=== PATIENT | female | born 1945 | race Caucasian/White ===

== ENCOUNTER 2016-07-05 18:03 | Observation (INO) | payer OTHER, MEDICAID ==
[~2016-07-05] VITALS: Ht 167.6 cm; Wt 113.0 kg
[~2016-07-05 18:03] MED LIST: ACAR50TA PO; AMLO5TAB22 PO; ATOR20TA42 PO; GLIP5 PO; GLUCTAB PO; JANU100T PO; LISI10TA PO; LORT5TAB PO; LOSA100T PO; META800 PO; METF1000 PO; OMEP20TA PO
[2016-07-05 18:09] VITALS: BP 132/66; PULSE 78; RESP 16; TEMP 98; O2SAT 96
[2016-07-05] MEDS ORDERED: OMEP40CA2 PO (18:24)
[2016-07-05] MEDS ORDERED: METF500T PO (18:24)
[2016-07-05] MEDS ORDERED: SITA1TAB2 PO (18:24)
[2016-07-05] MEDS ORDERED: METO50TA11 PO (18:24)
[2016-07-05] MEDS ORDERED: GLIP5TAB8 PO (18:24)
[2016-07-05] MEDS ORDERED: ACAR50TA PO (18:24)
[2016-07-05] MEDS ORDERED: METF1000 PO (18:24)
[2016-07-05] MEDS ORDERED: LISI20TA3 PO (18:24)
[2016-07-05] MEDS ORDERED: ATOR20TA15 PO (18:24)
--- NOTE | 2016-07-05 18:37 | PD ---
HPI Chief Complaint: Respiratory Symptoms Time Seen by Provider: 18:20 Travel History International Travel<30 days: No Contact w/Intl Traveler<30days: No Traveled to known affect area: No History of Present Illness HPI The patient is a 71-year-old female who presents to the emergency department for bilateral rib pain and back pain that radiates to the head. The patient states his symptoms started 2 weeks ago with bilateral rib pain. The patient then states the pain radiating up to the scapula, to the neck, and up to the size of the head. The patient complains of mild headache, neck pain, bilateral upper back pain. The pain is worse with coughing and certain types of movement, she also notes limited range of motion of the upper extremities. The patient denies any anterior chest pain except with coughing. She denies any outright shortness of breath, nausea, vomiting, or abdominal pain. The patient does have a history of chronic diarrhea, possibly secondary to diabetic medications. The patient denies any known history of autoimmune disorders or myositis. The patient denies any fever, chills, or sweats. The patient did call her primary physician, Dr. Moss, but was unable to get an appointment to see her physician. PFSH Past Medical History High Cholesterol: Yes Diabetes: Yes Patient Takes Glucophage: Yes Diminished Hearing: No Hypertension: Yes Musculoskeletal: Yes (PT STATES SHE HAS "DISK PROBLEM 7-8 YEARS AGO" BUT NO TROUBLE SINCE THEN) Tetanus Vaccination: Unknown Influenza Vaccination: Yes ?: Not : 0 Past Surgical History Abdominal Surgery: Yes (COLONOSCOPY 1 WEEK AGO) Social History Alcohol Use: No Tobacco Use: No Substance Use: No Allergies-Medications (Allergen,Severity, Reaction): Coded Allergies: No Known Allergies (Verified , 07/05/16) Reported Meds & Prescriptions Reported Meds & Active Scripts Active Reported Metoprolol Succinate ER 24 HR (Metoprolol Succinate) 50 Mg Tab 50 Mg PO DAILY Januvia (Sitagliptin Phosphate) 100 Mg Tab 100 Mg PO DAILY Omeprazole 40 Mg Cap 40 Mg PO DAILY Atorvastatin (Atorvastatin Calcium) 20 Mg Tab 20 Mg PO HS Acarbose 50 Mg Tab 50 Mg PO TID Glipizide 5 Mg Tab 5 Mg PO BIDAC Take 30 minutes before a meal Lisinopril-Hctz 20-25 Mg Tab 1 Tab PO DAILY Metformin (Metformin HCl) 500 Mg Tab 500 Mg PO NOON With a meal Metformin (Metformin HCl) 1,000 Mg Tab 1,000 Mg PO BIDPC With meals Review of Systems Except as stated in HPI: all other systems reviewed are Neg General / Constitutional: No: Fever HENT: Positive: Headaches, Neck Pain Cardiovascular: Positive: Chest Pain or Discomfort (bilateral chest wall pain secondary to coughing, no pain when not coughing) Respiratory: Positive: Cough Gastrointestinal: No: Nausea, Vomiting, Abdominal Pain Musculoskeletal: Positive: Myalgias, Limited ROM, Pain Neurologic: No: Paresthesia, Sensory Disturbance Physical Exam Narrative GENERAL: Awake, alert, pleasant 71-year-old female who appears her stated age and is in no acute respiratory distress. SKIN: Warm and dry. No stigmata of shingles. HEAD: Atraumatic. Normocephalic. EYES: Pupils equal and round. No scleral icterus. No injection or drainage. ENT: No nasal bleeding or discharge. Mucous membranes pink and moist. NECK: Trachea midline. No JVD. Tenderness over the paravertebral muscles. No meningeal signs. CARDIOVASCULAR: Regular rate and rhythm. No murmur appreciated. RESPIRATORY: No accessory muscle use. Clear to auscultation. Breath sounds equal bilaterally. GASTROINTESTINAL: Abdomen soft, non-tender, nondistended. No rebound tenderness. Back: Tenderness of the paravertebral muscles from the midthoracic region up to the scapula. MUSCULOSKELETAL: Limited range of motion of the upper extremities with abduction , extension, and raising her arms above her head. Movement greater than 90 with abduction or extension greater than 90, or raising her arms above her head , increases pain. Positive distal pulses. NEUROLOGICAL: Awake and alert. No obvious cranial nerve deficits. Motor grossly within normal limits. Normal speech. PSYCHIATRIC: Appropriate mood and affect; insight and judgment normal. Data Data Last Documented VS Vital Signs Date Time Temp Pulse Resp B/P Pulse Ox O2 Delivery O2 Flow Rate FiO2 07/05/16 20:15 16 07/05/16 20:11 68 111/49 94 Room Air 07/05/16 18:09 98.0 Orders Complete Blood Count With Diff (07/05/16 18:31) Comprehensive Metabolic Panel (07/05/16 18:31) Westergren Sedimentation Rate (07/05/16 18:31) C-Reactive Protein (Crp) (07/05/16 18:31) Creatine Kinase (Cpk) (07/05/16 18:31) Troponin I (07/05/16 18:31) Chest, Single Ap (07/05/16 ) Electrocardiogram (07/05/16 ) Urinalysis - C+S If Indicated (07/05/16 18:31) Ketorolac Inj (Toradol Inj) (07/05/16 18:45) Morphine Inj (Morphine Inj) (07/05/16 18:45) Ondansetron Inj (Zofran Inj) (07/05/16 18:45) Sodium Chlor 0.9% 1000 Ml Inj (Ns 1000 M (07/05/16 18:45) Lipase (07/05/16 18:37) Lactic Acid (07/05/16 18:37) Urine Culture (07/05/16 19:00) Bedside Glucose MICHELLE.AC&HS (07/05/16 20:49) ^ Blood Glucose Goal (Criteria (07/05/16 20:49) ^ Hypoglycemia 51 - 69 Mg/Dl (07/05/16 20:49) ^ Hypoglycemia 50 Mg/Dl Or < (07/05/16 20:49) ^ Notify Dr: Other (07/05/16 20:49) Dextrose 50% In Betty (Vial) Inj (D50w (Vi (07/05/16 21:00) Glucagon Inj (Glucagon Inj) (07/05/16 21:00) Insulin Aspart Supplemtl Scale (Novolog (07/05/16 21:00) Ceftriaxone Inj (Rocephin Inj) (07/05/16 21:00) Lactic Acid (07/06/16 06:00) Place In Observation (07/05/16 ) Vital Signs (Adult) Q4H (07/05/16 20:49) Activity Oob With Assistance (07/05/16 20:49) ^ Real Estate Analyst / Telemetry .CONTINUOUS (07/05/16 20:49) Intake + Output MICHELLE.QSHIFT (07/05/16 20:49) Diet 1800 Ada Cons Carb (07/06/16 Breakfast) Sodium Chlor 0.9% 1000 Ml Inj (Ns 1000 M (07/05/16 20:49) Sodium Chloride 0.9% Flush (Ns Flush) (07/05/16 21:00) Sodium Chloride 0.9% Flush (Ns Flush) (07/05/16 21:00) Ondansetron Inj (Zofran Inj) (07/05/16 21:00) Bisacodyl Supp (Dulcolax Supp) (07/05/16 21:00) Comprehensive Metabolic Panel (07/06/16 06:00) Complete Blood Count With Diff (07/06/16 06:00) Scd Bilateral/Knee High MICHELLE.BID (07/05/16 20:49) Willy Bilateral/Knee High MICHELLE.QSHIFT (07/05/16 20:49) Acetaminophen (Tylenol) (07/05/16 21:00) Acetamin-Hydrocod 325-5 Mg ([place] 5-325 (07/05/16 21:00) Acetamin-Hydrocod 325-10 Mg ([place] 10-32 (07/05/16 21:00) Atorvastatin (Lipitor) (07/05/16 21:00) Glipizide (Glucotrol) (07/06/16 07:00) Metoprolol Succinate Er (Toprol Xl) (07/06/16 09:00) Admit Order (Ed Use Only) (07/05/16 ) ^ Saline Lock (07/05/16 20:54) Resp Oxygen David C Titrat 1-4 L (07/05/16 ) ^ Notify Dr: Other (07/05/16 20:54) Labs Laboratory Tests Test 07/05/16 07/05/16 19:00 19:15 Urine Collection Type CLEAN CATCH Urine Color YELLOW Urine Turbidity SLIGHT Urine pH 5.5 Urine Specific [place] 1.027 Urine Protein NEG mg/dL Urine Glucose (UA) NEG mg/dL Urine Ketones TRACE mg/dL Urine Occult Blood NEG Urine Nitrite NEG Urine Bilirubin NEG Urine Leukocyte Esterase SMALL Urine WBC 20-24 /hpf Urine Squamous Epithelial > 8 /hpf Cells Urine Amorphous Sediment MOD Urine Bacteria FEW /hpf Urine Mucus MOD /lpf Microscopic Urinalysis Comment CULTURE INDICATED White Blood Count 8.9 TH/MM3 Red Blood Count 3.99 MIL/MM3 Hemoglobin 10.7 GM/DL Hematocrit 32.6 % Mean Corpuscular Volume 81.7 FL Mean Corpuscular Hemoglobin 26.9 PG Mean Corpuscular Hemoglobin 32.9 % Concent Red Cell Distribution Width 14.5 % Platelet Count 275 TH/MM3 Mean Platelet Volume 8.3 FL Neutrophils (%) (Auto) 55.0 % Lymphocytes (%) (Auto) 35.3 % Monocytes (%) (Auto) 7.2 % Eosinophils (%) (Auto) 1.8 % Basophils (%) (Auto) 0.7 % Neutrophils # (Auto) 4.8 TH/MM3 Lymphocytes # (Auto) 3.2 TH/MM3 Monocytes # (Auto) 0.6 TH/MM3 Eosinophils # (Auto) 0.2 TH/MM3 Basophils # (Auto) 0.1 TH/MM3 CBC Comment DIFF FINAL Differential Comment Erythrocyte Sedimentation Rate 64 mm/hr Sodium Level 142 MEQ/L Potassium Level 4.3 MEQ/L Chloride Level 106 MEQ/L Carbon Dioxide Level 27.4 MEQ/L Anion Gap 9 MEQ/L Blood Urea Nitrogen 24 MG/DL Creatinine 1.40 MG/DL Estimat Glomerular Filtration 37 ML/MIN Rate Random Glucose 174 MG/DL Lactic Acid Level 3.1 mmol/L Calcium Level 8.1 MG/DL Total Bilirubin 0.2 MG/DL Aspartate Amino Transf 13 U/L (AST/SGOT) Alanine Aminotransferase 17 U/L (ALT/SGPT) Alkaline Phosphatase 119 U/L Total Creatine Kinase 56 U/L Troponin I LESS THAN 0.02 NG/ML C-Reactive Protein 0.77 MG/DL Total Protein 7.3 GM/DL Albumin 3.0 GM/DL Lipase 134 U/L MDM Medical Decision Making Medical Screen Exam Complete: Yes Emergency Medical Condition: Yes Medical Record Reviewed: Yes Interpretation(s) EKG reveals normal sinus rhythm with a rate of 79. Nonspecific ST-T wave changes. RSR prime in V1. Differential Diagnosis Differential diagnosis includes myositis, rhabdomyolysis, muscle strain, shingles, acute renal failure, myopathy, polymyalgia rheumatica, autoimmune disorder. Narrative Course IV was established, labs are drawn and sent, and the patient was placed on cardiac telemetry monitoring and continuous pulse oximetry monitoring. EKG was ordered and interpreted. CPK, sedimentation rate, and CRP were sent to lab. Lactic acid was sent to lab. Chest x-ray was obtained. The patient was administered Toradol, morphine, Zofran, and IV fluids. The patient was signed out to the oncoming physician at 7 PM laboratory evaluation and disposition pending. Diagnosis Primary Impression: Migratory polyarthritis Additional Impression: UTI (urinary tract infection) Qualified Code: N30.00 - Acute cystitis without hematuria Scripts Nitrofurantoin Monohydrate Macrocrystals (Macrobid)100 Mg [id number] Mg PO BID #14 CAP Ref 0 Prov:Kayy Scruggs MD 07/06/16 Condition: Stable Dov Rodrigez MD Jul 05, 2016 18:37
[2016-07-05] MEDS ORDERED: ONDANSETRON HCL 4 MG/2 ML VIAL IV PUSH ONE (18:45)
[2016-07-05] MEDS ORDERED: SODIUM CHLOR 0.9% 1000 ML INJ 1,000 ML IV SCH (18:45)
[2016-07-05] MEDS ORDERED: MORPHINE SULFATE 4 MG/ML INJ IV PUSH ONE (18:45)
[2016-07-05] MEDS ORDERED: KETOROLAC TROMETHAMINE 30 MG/ML (IVP) VIAL IV PUSH ONE (18:45)
--- NOTE | 2016-07-05 19:04 | RADHPO ---
EXAM DATE/TIME: 07/05/2016 18:47 [place] COMPARISON: No previous studies available for comparison. INDICATIONS : Chest pain, short of breath MEDICAL HISTORY : None. SURGICAL HISTORY : None. ENCOUNTER: Initial ACUITY: 2 weeks PAIN SCORE: 10/10 LOCATION: Bilateral chest FINDINGS: A single view of the chest demonstrates the lungs to be symmetrically aerated without evidence of mas s, infiltrate or effusion. The cardiomediastinal contours are unremarkable. Osseous structures are intact. CONCLUSION: No acute disease. Cl Griffin MD FACR on July 05, 2016 at 19:02 Board Certified Radiologist. This report was verified electronically.
[2016-07-05 19:11] VITALS: BP 135/57; PULSE 78; O2SAT 96
--- NOTE | 2016-07-05 19:14 | PD ---
Physical Exam Date Seen by Provider: Jul 05, 2016 Time Seen by Provider: 19:10 Narrative Accepted in transfer of care from Dr. Rodrigez GENERAL: Well-developed well-nourished female in no acute distress no respiratory distress SKIN: Warm and dry. CARDIOVASCULAR: Regular rate and rhythm without murmurs, gallops, or rubs. RESPIRATORY: Breath sounds equal bilaterally. No accessory muscle use. GASTROINTESTINAL: Abdomen soft, non-tender, nondistended. Data Data Last Documented VS Vital Signs Date Time Temp Pulse Resp B/P Pulse Ox O2 Delivery O2 Flow Rate FiO2 07/05/16 20:15 16 07/05/16 20:11 68 111/49 94 Room Air 07/05/16 18:09 98.0 Orders Complete Blood Count With Diff (07/05/16 18:31) Comprehensive Metabolic Panel (07/05/16 18:31) Westergren Sedimentation Rate (07/05/16 18:31) C-Reactive Protein (Crp) (07/05/16 18:31) Creatine Kinase (Cpk) (07/05/16 18:31) Troponin I (07/05/16 18:31) Chest, Single Ap (07/05/16 ) Electrocardiogram (07/05/16 ) Urinalysis - C+S If Indicated (07/05/16 18:31) Ketorolac Inj (Toradol Inj) (07/05/16 18:45) Morphine Inj (Morphine Inj) (07/05/16 18:45) Ondansetron Inj (Zofran Inj) (07/05/16 18:45) Sodium Chlor 0.9% 1000 Ml Inj (Ns 1000 M (07/05/16 18:45) Lipase (07/05/16 18:37) Lactic Acid (07/05/16 18:37) Urine Culture (07/05/16 19:00) Bedside Glucose MICHELLE.AC&HS (07/05/16 20:49) ^ Blood Glucose Goal (Criteria (07/05/16 20:49) ^ Hypoglycemia 51 - 69 Mg/Dl (07/05/16 20:49) ^ Hypoglycemia 50 Mg/Dl Or < (07/05/16 20:49) ^ Notify Dr: Other (07/05/16 20:49) Dextrose 50% In Betty (Vial) Inj (D50w (Vi (07/05/16 21:00) Glucagon Inj (Glucagon Inj) (07/05/16 21:00) Insulin Aspart Supplemtl Scale (Novolog (07/05/16 21:00) Ceftriaxone Inj (Rocephin Inj) (07/05/16 21:00) Lactic Acid (07/06/16 06:00) Place In Observation (07/05/16 ) Vital Signs (Adult) Q4H (07/05/16 20:49) Activity Oob With Assistance (07/05/16 20:49) ^ Zipper Setter Lockstitch / Telemetry .CONTINUOUS (07/05/16 20:49) Intake + Output MICHELLE.QSHIFT (07/05/16 20:49) Diet 1800 Ada Cons Carb (07/06/16 Breakfast) Sodium Chlor 0.9% 1000 Ml Inj (Ns 1000 M (07/05/16 20:49) Sodium Chloride 0.9% Flush (Ns Flush) (07/05/16 21:00) Sodium Chloride 0.9% Flush (Ns Flush) (07/05/16 21:00) Ondansetron Inj (Zofran Inj) (07/05/16 21:00) Bisacodyl Supp (Dulcolax Supp) (07/05/16 21:00) Comprehensive Metabolic Panel (07/06/16 06:00) Complete Blood Count With Diff (07/06/16 06:00) Scd Bilateral/Knee High MICHELLE.BID (07/05/16 20:49) Willy Bilateral/Knee High MICHELLE.QSHIFT (07/05/16 20:49) Acetaminophen (Tylenol) (07/05/16 21:00) Acetamin-Hydrocod 325-5 Mg ([place] 5-325 (07/05/16 21:00) Acetamin-Hydrocod 325-10 Mg ([place] 10-32 (07/05/16 21:00) Atorvastatin (Lipitor) (07/05/16 21:00) Glipizide (Glucotrol) (07/06/16 07:00) Metoprolol Succinate Er (Toprol Xl) (07/06/16 09:00) Admit Order (Ed Use Only) (07/05/16 ) ^ Saline Lock (07/05/16 20:54) Resp Oxygen David C Titrat 1-4 L (07/05/16 ) ^ Notify Dr: Other (07/05/16 20:54) Labs Laboratory Tests Test 07/05/16 07/05/16 19:00 19:15 Urine Collection Type CLEAN CATCH Urine Color YELLOW Urine Turbidity SLIGHT Urine pH 5.5 Urine Specific [place] 1.027 Urine Protein NEG mg/dL Urine Glucose (UA) NEG mg/dL Urine Ketones TRACE mg/dL Urine Occult Blood NEG Urine Nitrite NEG Urine Bilirubin NEG Urine Leukocyte Esterase SMALL Urine WBC 20-24 /hpf Urine Squamous Epithelial > 8 /hpf Cells Urine Amorphous Sediment MOD Urine Bacteria FEW /hpf Urine Mucus MOD /lpf Microscopic Urinalysis Comment CULTURE INDICATED White Blood Count 8.9 TH/MM3 Red Blood Count 3.99 MIL/MM3 Hemoglobin 10.7 GM/DL Hematocrit 32.6 % Mean Corpuscular Volume 81.7 FL Mean Corpuscular Hemoglobin 26.9 PG Mean Corpuscular Hemoglobin 32.9 % Concent Red Cell Distribution Width 14.5 % Platelet Count 275 TH/MM3 Mean Platelet Volume 8.3 FL Neutrophils (%) (Auto) 55.0 % Lymphocytes (%) (Auto) 35.3 % Monocytes (%) (Auto) 7.2 % Eosinophils (%) (Auto) 1.8 % Basophils (%) (Auto) 0.7 % Neutrophils # (Auto) 4.8 TH/MM3 Lymphocytes # (Auto) 3.2 TH/MM3 Monocytes # (Auto) 0.6 TH/MM3 Eosinophils # (Auto) 0.2 TH/MM3 Basophils # (Auto) 0.1 TH/MM3 CBC Comment DIFF FINAL Differential Comment Erythrocyte Sedimentation Rate 64 mm/hr Sodium Level 142 MEQ/L Potassium Level 4.3 MEQ/L Chloride Level 106 MEQ/L Carbon Dioxide Level 27.4 MEQ/L Anion Gap 9 MEQ/L Blood Urea Nitrogen 24 MG/DL Creatinine 1.40 MG/DL Estimat Glomerular Filtration 37 ML/MIN Rate Random Glucose 174 MG/DL Lactic Acid Level 3.1 mmol/L Calcium Level 8.1 MG/DL Total Bilirubin 0.2 MG/DL Aspartate Amino Transf 13 U/L (AST/SGOT) Alanine Aminotransferase 17 U/L (ALT/SGPT) Alkaline Phosphatase 119 U/L Total Creatine Kinase 56 U/L Troponin I LESS THAN 0.02 NG/ML C-Reactive Protein 0.77 MG/DL Total Protein 7.3 GM/DL Albumin 3.0 GM/DL Lipase 134 U/L [facility] Medical Record Reviewed: Yes Supervised Visit with ROBERTO: No Interpretation(s) Laboratory Tests Test 07/05/16 07/05/16 19:00 19:15 Urine Collection Type CLEAN CATCH Urine Color YELLOW Urine Turbidity SLIGHT Urine pH 5.5 Urine Specific [place] 1.027 Urine Protein NEG mg/dL Urine Glucose (UA) NEG mg/dL Urine Ketones TRACE mg/dL Urine Occult Blood NEG Urine Nitrite NEG Urine Bilirubin NEG Urine Leukocyte Esterase SMALL Urine WBC 20-24 /hpf Urine Squamous Epithelial > 8 /hpf Cells Urine Amorphous Sediment MOD Urine Bacteria FEW /hpf Urine Mucus MOD /lpf Microscopic Urinalysis Comment CULTURE INDICATED White Blood Count 8.9 TH/MM3 Red Blood Count 3.99 MIL/MM3 Hemoglobin 10.7 GM/DL Hematocrit 32.6 % Mean Corpuscular Volume 81.7 FL Mean Corpuscular Hemoglobin 26.9 PG Mean Corpuscular Hemoglobin 32.9 % Concent Red Cell Distribution Width 14.5 % Platelet Count 275 TH/MM3 Mean Platelet Volume 8.3 FL Neutrophils (%) (Auto) 55.0 % Lymphocytes (%) (Auto) 35.3 % Monocytes (%) (Auto) 7.2 % Eosinophils (%) (Auto) 1.8 % Basophils (%) (Auto) 0.7 % Neutrophils # (Auto) 4.8 TH/MM3 Lymphocytes # (Auto) 3.2 TH/MM3 Monocytes # (Auto) 0.6 TH/MM3 Eosinophils # (Auto) 0.2 TH/MM3 Basophils # (Auto) 0.1 TH/MM3 CBC Comment DIFF FINAL Differential Comment Erythrocyte Sedimentation Rate 64 mm/hr Sodium Level 142 MEQ/L Potassium Level 4.3 MEQ/L Chloride Level 106 MEQ/L Carbon Dioxide Level 27.4 MEQ/L Anion Gap 9 MEQ/L Blood Urea Nitrogen 24 MG/DL Creatinine 1.40 MG/DL Estimat Glomerular Filtration 37 ML/MIN Rate Random Glucose 174 MG/DL Lactic Acid Level 3.1 mmol/L Calcium Level 8.1 MG/DL Total Bilirubin 0.2 MG/DL Aspartate Amino Transf 13 U/L (AST/SGOT) Alanine Aminotransferase 17 U/L (ALT/SGPT) Alkaline Phosphatase 119 U/L Total Creatine Kinase 56 U/L Troponin I LESS THAN 0.02 NG/ML C-Reactive Protein 0.77 MG/DL Total Protein 7.3 GM/DL Albumin 3.0 GM/DL Lipase 134 U/L Differential Diagnosis Please refer to Dr. Rodrigez's dictation Narrative Course Accepted in transfer of care from Dr. Rodrigez for follow-up of pending diagnostics and patient disposition Patient with family at bedside aware of laboratory abnormalities and recommendation for observation admission for ongoing management of possible polymyalgia rheumatica, migratory polyarthritis UTI and elevated lactic acid level. Patient's case discussed with on-call medicine physician aware of elevated lactic acid and sedimentation rate as well as UTI and patient will be started on IV antibiotics may be a candidate for IV steroids Physician Communication Physician Communication case discussed with on-call [facility] MD Dr Lee --obs Diagnosis Primary Impression: Migratory polyarthritis Additional Impressions: UTI (urinary tract infection) Elevated lactic acid level Admitting Information Admitting Physician Requests: Observation Condition: Stable Rayna Vallejo MD Jul 05, 2016 19:13
[2016-07-05 19:27] LABS: AUTOMATED NEUTROPHIL # 4.8 TH/MM3 (1.8-7.7); BASOPHIL # 0.1 TH/MM3 (0-0.2); BASOPHIL % 0.7 % (0.0-2.0); EOSINOPHIL # 0.2 TH/MM3 (0-0.4); EOSINOPHIL % 1.8 % (0.0-4.0); HEMATOCRIT 32.6 % (35.0-46.0); HEMO FLAGS DIFF FINAL; LYMPH % 35.3 % (9.0-44.0); LYMPHOCYTE # 3.2 TH/MM3 (1.0-4.8); MEAN CELL VOLUME 81.7 FL (80.0-100.0); MEAN CORPUSCULAR HEMOGLOBIN 26.9 PG (27.0-34.0); MEAN CORPUSCULAR HGB CONC 32.9 % (32.0-36.0); MONO % 7.2 % (0.0-8.0); PLATELET COUNT 275 TH/MM3 (150-450); RED BLOOD COUNT 3.99 MIL/MM3 (4.00-5.30); RED CELL DISTRIBUTION WIDTH 14.5 % (11.6-17.2); WHITE BLOOD COUNT 8.9 TH/MM3 (4.0-11.0)
[2016-07-05 19:35] LABS: CHLORIDE 106 MEQ/L (98-107); POTASSIUM 4.3 MEQ/L (3.5-5.1); SODIUM (NA) 142 MEQ/L (136-145)
[2016-07-05 19:38] LABS: ANION GAP 9 MEQ/L (5-15); BICARBONATE 27.4 MEQ/L (21.0-32.0); BLOOD UREA NITROGEN 24 MG/DL (7-18)
[2016-07-05 19:41] LABS: ALT (GPT) 17 U/L (10-53); AST (GOT) 13 U/L (15-37)
[2016-07-05 19:42] LABS: GLOMERULAR FILTRATION RATE 37 ML/MIN (>89)
[2016-07-05 19:43] LABS: TOTAL BILIRUBIN ADULT 0.2 MG/DL (0.2-1.0)
[2016-07-05 19:44] LABS: ALKALINE PHOSPHATASE 119 U/L (45-117)
[2016-07-05 19:46] LABS: CREATINE KINASE 56 U/L (26-192)
[2016-07-05 19:48] LABS: BLOOD, URINE NEG (NEG); GLUCOSE,URINE NEG (NEG); KETONE, URINE TRACE mg/dL (NEG); NITRITE,URINE NEG (NEG); PH, URINE 5.5 (5.0-8.5)
[2016-07-05 20:11] VITALS: BP 111/49; PULSE 68; O2SAT 94
[2016-07-05 20:19] LABS: METHOD OF COLLECTION CLEAN CATCH; MUCUS URINE MOD /lpf (OCC); URINE COLOR YELLOW (YELLW/STRAW)
[2016-07-05 20:21] LABS: SQUAMOUS EPITHELIAL CELL URINE > 8 /hpf (0-5)
[2016-07-05 20:22] LABS: BACTERIA, URINE FEW /hpf; COMMENT (UR) CULTURE INDICATED; CULTURE IF INDICATED CULTURE INDICATED
[2016-07-05] MEDS ORDERED: SODIUM CHLORIDE 0.9% FLUSH 5 ML FLUSH IVF PRN (21:00)
[2016-07-05] MEDS ORDERED: ATORVASTATIN 20 MG TAB PO SCH (21:00)
[2016-07-05] MEDS ORDERED: DEXTROSE 50% IN WATER 50 ML VIAL(D50) IV PUSH PRN (21:00)
[2016-07-05] MEDS ORDERED: ACETAMINOPHEN/HYDROcodone 325 MG/5 MG TAB PO PRN (21:00)
[2016-07-05] MEDS ORDERED: BISACODYL 10 MG SUPP PR PRN (21:00)
[2016-07-05] MEDS ORDERED: GLUCAGON 1 MG/ML VIAL OTHER PRN (21:00)
[2016-07-05] MEDS ORDERED: ACETAMINOPHEN/HYDROcodone 325 MG/10 MG TAB PO PRN (21:00)
[2016-07-05] MEDS ORDERED: ACETAMINOPHEN 325 MG TAB PO PRN (21:00)
[2016-07-05] MEDS ORDERED: cefTRIAXone INJ 1,000 MG in SODIUM CHLORIDE 0.9% INJ 100 ML IV SCH (21:00)
[2016-07-05] MEDS ORDERED: ONDANSETRON HCL 4 MG/2 ML VIAL IVP PRN (21:00)
[2016-07-05] MEDS ORDERED: cefTRIAXone INJ 1,000 MG in SODIUM CHLORIDE 0.9% INJ 100 ML IV ONE (21:00)
[2016-07-05] MEDS ORDERED: SODIUM CHLORIDE 0.9% FLUSH 5 ML FLUSH IVF SCH (21:00)
[2016-07-05] MEDS ORDERED: SODIUM CHLORIDE 0.9% FLUSH 5 ML FLUSH FLUSH PRN (21:00)
[2016-07-05 21:11] VITALS: BP 120/48; PULSE 68; O2SAT 94
[2016-07-05] MEDS: INSULIN ASPART SUPPLEMENTAL SCALE SQ SCH (21:37)
[2016-07-05] MEDS: SODIUM CHLORIDE 0.9% FLUSH 5 ML FLUSH FLUSH SCH (21:37)
[2016-07-05] MEDS: SODIUM CHLOR 0.9% 1000 ML INJ 1,000 ML IV SCH (21:38)
[2016-07-05 21:49] VITALS: O2SAT 97
[2016-07-05 23:45] VITALS: BP 142/63; PULSE 73; RESP 16; TEMP 97.9; O2SAT 94
[2016-07-06] VITALS: BP 142/69; PULSE 60; RESP 18; TEMP 96.6; O2SAT 97
[2016-07-06 00:25] VITALS: BP 142/69; PULSE 60; RESP 18; TEMP 96.6; O2SAT 97
[2016-07-06 04:00] VITALS: BP 136/60; PULSE 61; RESP 18; TEMP 95.8; O2SAT 96
[2016-07-06] MEDS: INSULIN ASPART SUPPLEMENTAL SCALE SQ SCH (06:15)
[2016-07-06] MEDS: SODIUM CHLOR 0.9% 1000 ML INJ 1,000 ML IV SCH (06:21)
[2016-07-06] MEDS ORDERED: glipiZIDE 5 MG TAB PO SCH (07:00)
[2016-07-06 08:00] VITALS: BP 147/75; PULSE 65; PULSE 68; RESP 17; TEMP 97.4; O2SAT 97
[2016-07-06] MEDS: SODIUM CHLORIDE 0.9% FLUSH 5 ML FLUSH FLUSH SCH (08:02)
[2016-07-06 08:28] LABS: AUTOMATED NEUTROPHIL # 4.3 TH/MM3 (1.8-7.7); BASOPHIL # 0.1 TH/MM3 (0-0.2); BASOPHIL % 0.8 % (0.0-2.0); EOSINOPHIL # 0.2 TH/MM3 (0-0.4); EOSINOPHIL % 2.4 % (0.0-4.0); HEMATOCRIT 33.7 % (35.0-46.0); HEMO FLAGS DIFF FINAL; LYMPH % 33.6 % (9.0-44.0); LYMPHOCYTE # 2.5 TH/MM3 (1.0-4.8); MEAN CELL VOLUME 83.5 FL (80.0-100.0); MEAN CORPUSCULAR HEMOGLOBIN 26.6 PG (27.0-34.0); MEAN CORPUSCULAR HGB CONC 31.9 % (32.0-36.0); NEUT % 56.2 % (16.0-70.0); PLATELET COUNT 256 TH/MM3 (150-450); RED BLOOD COUNT 4.04 MIL/MM3 (4.00-5.30); RED CELL DISTRIBUTION WIDTH 15.4 % (11.6-17.2); WHITE BLOOD COUNT 7.6 TH/MM3 (4.0-11.0)
[2016-07-06 08:31] LABS: CHLORIDE 106 MEQ/L (98-107); POTASSIUM 4.1 MEQ/L (3.5-5.1); SODIUM (NA) 143 MEQ/L (136-145)
[2016-07-06 08:36] LABS: ANION GAP 8 MEQ/L (5-15); BICARBONATE 28.7 MEQ/L (21.0-32.0); BLOOD UREA NITROGEN 25 MG/DL (7-18)
[2016-07-06 08:39] LABS: ALT (GPT) 15 U/L (10-53); AST (GOT) 15 U/L (15-37); GLOMERULAR FILTRATION RATE 49 ML/MIN (>89)
[2016-07-06 08:40] LABS: TOTAL BILIRUBIN ADULT 0.2 MG/DL (0.2-1.0)
[2016-07-06 08:41] LABS: ALKALINE PHOSPHATASE 109 U/L (45-117)
[2016-07-06] MEDS ORDERED: METOPROLOL SUCCINATE 50 MG EXTENDED RELEASE TAB PO SCH (09:00)
[2016-07-06] MEDS ORDERED: MACR100C2 PO (10:28)
--- NOTE | 2016-07-06 10:29 | HHI.DCPOC ---
Discharge Care Plan Diagnosis: (1) Migratory polyarthritis (2) UTI (urinary tract infection) Goals to Promote Your Health * To prevent worsening of your condition and complications * To maintain your health at the optimal level Directions to Meet Your Goals Take your medications as prescribed Follow your dietary instruction Follow activity as directed Keep your appointments as scheduled Take your immunizations and boosters as scheduled If your symptoms worsen call your PCP, if no PCP go to Urgent Care Center or Emergency Room Smoking is Dangerous to Your Health. Avoid second hand smoke Call the 24-hour hour crisis hotline for domestic abuse at Kayy Scruggs MD Jul 06, 2016 10:29
--- NOTE | 2016-07-06 10:33 | HHI.HP ---
[facility] Primary Care Physician Moustapha Parker MD Admission Diagnosis Migratory arthropathy; uti; elevated lactate Diagnoses: Chief Complaint: Back pain Travel History International Travel<30 Days: No Contact w/Intl Traveler <30 Da: No Traveled to Known Affected Are: No History of Present Illness Patient is a 71-year-old female with some back pain for several days. She noted that she had a cough for the last 2 weeks and noted that the pain got worse when she coughed. She tried Advil and had finally come to the emergency room with severe pain. Overnight her discomfort is improved. She did have evidence of acute kidney injury with elevated lactic acid and was observed overnight in the hospital. Patient was found to have urinary tract infection was given Rocephin. This improved her symptoms and she did well. She was discharged home Review of Systems Constitutional: DENIES: Diaphoretic episodes, Fatigue, Fever, Weight gain, Weight loss, Chills, Dizziness, Change in appetite, Night Sweats Endocrine: DENIES: Abnorml menstrual pattern, Heat/cold intolerance, Polydipsia , Polyuria, Polyphagia Eyes: DENIES: Blurred vision, Diplopia, Eye inflammation, Eye pain, Vision loss , Photosensitivity, Double Vision Ears, nose, mouth, throat: DENIES: Tinnitus, Hearing loss, Vertigo, Nasal discharge, Oral lesions, Throat pain, Hoarseness, Ear Pain, Running Nose, Epistaxis, Sinus Pain, Toothache, Odynophagia Respiratory: DENIES: Apneas, Cough, Snoring, Wheezing, Hemoptysis, Sputum production, Shortness of breath Cardiovascular: DENIES: Chest pain, Palpitations, Syncope, Dyspnea on Exertion , PND, Lower Extremity Edema, Orthopnea, Claudication Gastrointestinal: DENIES: Abdominal pain, Black stools, Bloody stools, Constipation, Diarrhea, Nausea, Vomiting, Difficulty Swallowing, Anorexia Genitourinary: COMPLAINS OF: Urgency, DENIES: Abnormal vaginal bleeding, Dysmenorrhea, Dyspareunia, Sexual dysfunction, Urinary frequency, Urinary incontinence, Hematuria, Dysuria, Nocturia, Vaginal discharge Musculoskeletal: COMPLAINS OF: Joint pain, Muscle aches, Back pain, DENIES: Stiffness, Joint Swelling, Neck pain Integumentary: DENIES: Abnormal pigmentation, Pruritus, Rash, Nail changes, Breast masses, Breast skin changes, Nipple discharge Hematologic/lymphatic: DENIES: Bruising, Lymphadenopathy Immunologic/allergic: DENIES: Eczema, Urticaria Psychiatric: DENIES: Anxiety, Confusion, Mood changes, Depression, Hallucinations, Agitation, Suicidal Ideation, Homicidal Ideation, Delusions Past Family Social History Past Medical History Diabetes Hypertension Hyperlipidemia Past Surgical History Denies Reported Medications Reviewed in the medical record, no new medications but does take Advil frequently for arthralgias Allergies: Coded Allergies: No Known Allergies (Verified , 07/05/16) Active Ordered Medications Reviewed in the medical record Family History Family history of diabetes in her father Social History Lives with her family, no tobacco or alcohol dependency Physical Exam Vital Signs Vital Signs Date Time Temp Pulse Resp B/P Pulse Ox O2 Delivery O2 Flow Rate FiO2 07/06/16 08:00 97.4 65 17 147/75 97 07/06/16 08:00 68 07/06/16 04:00 95.8 61 18 136/60 96 07/06/16 00:25 96.6 60 18 142/69 97 07/05/16 23:45 97.9 73 16 142/63 94 Room Air 07/05/16 21:49 97 21 07/05/16 21:11 68 120/48 94 Room Air 07/05/16 20:15 16 07/05/16 20:15 16 07/05/16 20:11 68 111/49 94 Room Air 07/05/16 19:11 78 135/57 96 Room Air 07/05/16 19:01 20 Room Air 07/05/16 18:09 98.0 78 16 132/66 96 Physical Exam GENERAL: This is a well-nourished, well-developed patient, in no apparent distress. SKIN: No rashes, ecchymoses or lesions. Cool and dry. HEAD: Atraumatic. Normocephalic. No temporal or scalp tenderness. EYES: Pupils equal round and reactive. Extraocular motions intact. No scleral icterus. No injection or drainage. ENT: Nose without bleeding, purulent drainage or septal hematoma. Throat without erythema, tonsillar hypertrophy or exudate. Uvula midline. Airway patent. NECK: Trachea midline. No JVD or lymphadenopathy. Supple, nontender, no meningeal signs. CARDIOVASCULAR: Regular rate and rhythm without murmurs, gallops, or rubs. RESPIRATORY: Clear to auscultation. Breath sounds equal bilaterally. No wheezes , rales, or rhonchi. GASTROINTESTINAL: Abdomen soft, non-tender, nondistended. No hepato-splenomegaly , or palpable masses. No guarding. MUSCULOSKELETAL: Extremities without clubbing, cyanosis, or edema. No joint tenderness, effusion, or edema noted. No calf tenderness. Negative Homans sign bilaterally. NEUROLOGICAL: Awake and alert. Cranial nerves II through XII intact. Motor and sensory grossly within normal limits. Five out of 5 muscle strength in all muscle groups. Normal speech. Laboratory Laboratory Tests Test 07/05/16 07/05/16 07/06/16 19:00 19:15 08:15 Urine Collection Type CLEAN CATCH Urine Color YELLOW Urine Turbidity SLIGHT Urine pH 5.5 Urine Specific [place] 1.027 Urine Protein NEG Urine Glucose (UA) NEG Urine Ketones TRACE Urine Occult Blood NEG Urine Nitrite NEG Urine Bilirubin NEG Urine Leukocyte Esterase SMALL Urine WBC 20-24 Urine Squamous Epithelial > 8 Cells Urine Amorphous Sediment MOD Urine Bacteria FEW Urine Mucus MOD Microscopic Urinalysis Comment CULTURE INDICATED White Blood Count 8.9 7.6 Red Blood Count 3.99 4.04 Hemoglobin 10.7 10.7 Hematocrit 32.6 33.7 Mean Corpuscular Volume 81.7 83.5 Mean Corpuscular Hemoglobin 26.9 26.6 Mean Corpuscular Hemoglobin 32.9 31.9 Concent Red Cell Distribution Width 14.5 15.4 Platelet Count 275 256 Mean Platelet Volume 8.3 9.1 Neutrophils (%) (Auto) 55.0 56.2 Lymphocytes (%) (Auto) 35.3 33.6 Monocytes (%) (Auto) 7.2 7.0 Eosinophils (%) (Auto) 1.8 2.4 Basophils (%) (Auto) 0.7 0.8 Neutrophils # (Auto) 4.8 4.3 Lymphocytes # (Auto) 3.2 2.5 Monocytes # (Auto) 0.6 0.5 Eosinophils # (Auto) 0.2 0.2 Basophils # (Auto) 0.1 0.1 CBC Comment DIFF FINAL DIFF FINAL Differential Comment Erythrocyte Sedimentation Rate 64 Sodium Level 142 143 Potassium Level 4.3 4.1 Chloride Level 106 106 Carbon Dioxide Level 27.4 28.7 Anion Gap 9 8 Blood Urea Nitrogen 24 25 Creatinine 1.40 1.10 Estimat Glomerular Filtration 37 49 Rate Random Glucose 174 162 Lactic Acid Level 3.1 1.2 Calcium Level 8.1 8.5 Total Bilirubin 0.2 0.2 Aspartate Amino Transf 13 15 (AST/SGOT) Alanine Aminotransferase 17 15 (ALT/SGPT) Alkaline Phosphatase 119 109 Total Creatine Kinase 56 Troponin I LESS THAN 0.02 C-Reactive Protein 0.77 Total Protein 7.3 7.2 Albumin 3.0 3.0 Lipase 134 Date/Time Procedure Status Source Growth 07/05/16 19:00 Urine Culture Received Urine Clean Catch Pending Result Diagram: 07/06/16 0815 07/06/16 0815 Assessment and Plan Problem List: (1) UTI (urinary tract infection) ICD Code: N39.0 Status: Acute Plan: With evidence of acute kidney injury. Joint pain appears improved. Lactic acid improved. Overnight patient dramatically improved with IV hydration. No new events this morning. Discharge plans discussed with patient and she is agreeable. Assessment and Plan Discharge home Activity unrestricted Diet diabetic Follow-up with primary care physician 1 week Kayy Scruggs MD Jul 06, 2016 10:33
--- NOTE | 2016-07-06 19:34 | EKG ---
Date Performed: 07/05/2016 Time Performed: 18:32:32 PTAGE: 71 years EKG: Sinus rhythm Consider left atrial abnormality Left axis deviation RBBB with left anterior fascicular block Possib le anterior infarct - age undetermined Left ventricular hypertrophy Lateral ST-T changes are probably due to ventricular hypertrophy Low QRS voltages in precordial leads Abnormal ECG NO PREVIOUS TRACING DOCTOR: Ian Felder Interpretating Date/Time 07/06/2016 19:31:03
== END 2016-07-06 11:40 | disposition home or self-care (01) ==
LOC: PHED 18:03 → PHEDA 20:56 → PH3B 07-06 00:04
PROVIDERS: ADMIT Hospitalist; ATTEND Hospitalist
DX: N39.0 Urinary tract infection, site not specified (principal); I00 Rheumatic fever without heart involvement; M12.9 Arthropathy, unspecified; R74.0 Nonspecific elevation of levels of transaminase and lactic acid dehydrogenase [LDH]; I10 Essential (primary) hypertension; E78.5 Hyperlipidemia, unspecified; E78.00 Pure hypercholesterolemia, unspecified; N17.9 Acute kidney failure, unspecified; Z79.84 Long term (current) use of oral hypoglycemic drugs; E11.9 Type 2 diabetes mellitus without complications
CPT/HCPCS: 71010; 80053; 81001; 82550; 82948; 83605; 83690; 84484; 85025; 85652; 86140; 87086; 93005; 96361; 96374; 96375; 99285; G0378; J0696; J1885; J2270; J2405; J7030

== ENCOUNTER 2018-03-19 21:48 | Inpatient (IN) ==
[2018-03-19] MEDS ORDERED: Adenosine Inj 6 MG/2 ML Syringe IV.PUSH ONE ×2 (22:06→22:38)
[2018-03-19 23:36] LABS: Baso # (Auto) 0.1 th/mm3 (0.0-0.2); Baso % (Auto) 0.9 % (0.0-2.0); Eos # (Auto) 0.1 th/mm3 (0.0-0.4); Eos % (Auto) 1.5 % (0.0-4.0); Hematocrit 30.4 % (35.0-46.0); Hemoglobin 9.4 gm/dL (11.6-15.3); Lymph # (Auto) 2.6 th/mm3 (1.0-4.8); Lymph % (Auto) 27.9 % (9.0-44.0); Mean Corpuscular Hemoglobin 23.8 pg (27.0-34.0); Mean Corpuscular Volume 77.1 fL (80.0-100.0); Mean Platelet Volume 9.2 fL (7.0-11.0); Mono # (Auto) 0.7 th/mm3 (0.0-0.9); Mono % (Auto) 7.7 % (0.0-8.0); Neut # (Auto) 5.9 th/mm3 (1.8-7.7); Platelet Count 290 th/mm3 (150-450); Red Blood Count 3.94 mil/mm3 (4.00-5.30); Red Cell Distribution Width 15.9 % (11.6-17.2); White Blood Count 9.4 th/mm3 (4.0-11.0)
[2018-03-19 23:43] LABS: Mean Corpuscular HGB Conc 30.8 % (32.0-36.0)
--- NOTE | 2018-03-19 23:53 | XR ---
EXAM DATE: 03/19/2018 10:44 PM EDT AGE/SEX: 72 years / Female INDICATIONS: Chest pain. CLINICAL DATA: This is the patient's initial encounter. Patient reports that signs and symptoms have been present for 1 day and indicates a pain score of 8/10. MEDICAL/SURGICAL HISTORY: Diabetes mellitus type II. Hypertension. None. COMPARISON: No prior exams available for comparison. FINDINGS: The heart size is normal. The lungs are clear. No effusion is seen. There is a line seen over the right upper extremity. This structure appears in the medial upper arm, is directed into the upper chest and loops back on itself towards the lower right chest and then the right axillary region. If this represents a PICC line, this is likely not within a normal vascular structure. This should be correlated clinically. The patient could have a supporting line over this r egion. CONCLUSION: No acute cardiopulmonary process. Line over the right upper extremity and right chest not within a vascular structure. This can be rosalina elated if this corresponds to a supporting line versus a PICC line. If this is a PICC line, it is not likely within a normal vascular structure. Electronically signed by: Joon Valdez MD 03/19/2018 11:51 PM EDT
[2018-03-20] LABS: Chloride 103 meq/L (98-107); Potassium 4.2 meq/L (3.5-5.1); Sodium 138 meq/L (136-145)
[2018-03-20 00:03] LABS: Calcium 8.9 mg/dL (8.5-10.1)
[2018-03-20 00:04] LABS: Albumin 3.6 g/dL (3.4-5.0); Anion Gap 13 meq/L (5-15); Blood Urea Nitrogen 28 mg/dL (7-18); Carbon Dioxide 21.8 meq/L (21.0-32.0); Glucose,Random 335 mg/dL (74-106)
[2018-03-20 00:07] LABS: Alanine Aminotransferase 20 U/L (10-53); Aspartate Aminotransferase 14 U/L (15-37); Glomerular Filtration Rate 29 mL/min (>89)
[2018-03-20 00:09] LABS: Total Protein 8.1 g/dL (6.4-8.2)
[2018-03-20 00:10] LABS: Alkaline Phosphatase 139 U/L (45-117)
[2018-03-20 00:21] LABS: Ovalocytes 1+
--- NOTE | 2018-03-20 01:54 | ED ---
HPI General Chief Complaint: Arrhythmia / Palpitations Stated Complaint: CHEST PAIN/LEGS SHAKING/NECK PAIN Time Seen by Provider: 03/19/18 22:13 Source: patient Mode of arrival: ambulatory Limitations: no limitations History of Present Illness HPI narrative: Patient has history of recurrent supraventricular tachycardia. Patient had another episode today that persisted since approximately 10 AM. Patient has had substernal pressure that has been constant. No diaphoresis, however, intermittent shortness of breath. On presentation patient has heart rate of 160 of supraventricular tachycardia. Related Data Home Medications Medication Instructions Recorded Confirmed Vitamin B-12 1,000 mcg PO DAILY 03/19/18 03/19/18 acarbose 50 mg PO TID 03/19/18 03/19/18 atorvastatin 20 mg PO DAILY 03/19/18 03/19/18 glipizide 5 mg PO BID 03/19/18 03/19/18 lisinopril-hydrochlorothiazide 1 tab PO BID 03/19/18 03/19/18 metformin 1,000 mg PO BID 03/19/18 03/19/18 metoprolol succinate 50 mg PO DAILY 03/19/18 03/19/18 omeprazole 20 mg PO DAILY 03/19/18 03/19/18 sitagliptin [Januvia] 100 mg PO DAILY 03/19/18 03/19/18 Allergies Allergy/AdvReac Type Severity Reaction Status Date / Time No Known Allergies Allergy Verified 03/19/18 22:31 Review of Systems ROS: all other systems reviewed are negative [facility] Medical History Medical History History of high blood pressure (Acute) History of high cholesterol (Acute) Hx of diabetes mellitus (Acute) Hx of gastroesophageal reflux (GERD) (Acute) Surgical History Surgical History No history of previous surgery (Acute) Social History Social History Substance History: No History of Abuse Smoking Status: Never smoker How Often Do You Have a Drink Containing Alcohol: Never Recent Travel in [facility] within the Last 8 Weeks: No Recent Out of Country Travel within the Last 8 Weeks: No Immunization History Tetanus Immunization: Unsure Hx Influenza Vaccine This Season: Yes Exam Narrative Exam Narrative: GENERAL: Alert and oriented however persistent chest pain SKIN: Focused skin assessment warm/dry. HEAD: Atraumatic. Normocephalic. EYES: Pupils equal and round. No scleral icterus. No injection or drainage. ENT: No nasal bleeding or discharge. Mucous membranes pink and moist. NECK: Trachea midline. No JVD. CARDIOVASCULAR: Supraventricular tachycardia at rate of 160/min. No murmur appreciated. Pretibial edema 3 mm RESPIRATORY: No accessory muscle use. Clear to auscultation. Breath sounds equal bilaterally. GASTROINTESTINAL: Abdomen soft, non-tender, nondistended. Hepatic and splenic margins not palpable. MUSCULOSKELETAL: No obvious deformities. No clubbing. No cyanosis. No edema. NEUROLOGICAL: Awake and alert. No obvious cranial nerve deficits. Motor grossly within normal limits. Normal speech. PSYCHIATRIC: Appropriate mood and affect; insight and judgment normal. Course Reevaluation(s) Reevaluation #1: Patient failed to respond to Valsalva and sinus carotid massage. Responded to second dose of adenosine. However EKG afterwards showed ischemic changes in the lateral leads of EKG after conversion. Patient stable until now Time: 03:02 Initial Documented Vital Signs Temperature 98.2 F 03/19/18 21:54 Pulse Rate 165 H 03/19/18 21:54 Last Documented Vital Signs Temperature 97.9 F 03/19/18 22:42 Pulse Rate 78 03/20/18 01:21 Respiratory Rate 18 03/20/18 01:21 Blood Pressure 132/61 03/20/18 01:21 Pulse Oximetry 97 03/20/18 02:35 Critical Care Time Total Critical Care Time: 60 Attestation: None necessary Medical Decision Making [facility] Narrative Medical decision making narrative: Patient had supraventricular tachycardia that responded to admit seen and is stable at the present time however patient had lateral ischemic changes after conversion to normal sinus rhythm that varied from her previous EKG. Therefore patient requires admission to cardiology for follow-up and further evaluation Medical Screen Exam Complete: Yes Emergency Medical Condition: Yes Lab Data Result diagrams: 03/19/18 22:50 03/19/18 22:50 Lab Results 03/19/18 03/19/18 03/19/18 Range/Units 22:50 22:50 22:50 CBC w Diff Slide review pending WBC 9.4 (4.0-11.0) th/mm3 RBC 3.94 L (4.00-5.30) mil/mm3 Hgb 9.4 L (11.6-15.3) gm/dL Hct 30.4 L (35.0-46.0) % MCV 77.1 L (80.0-100.0) fL MCH 23.8 L (27.0-34.0) pg MCHC 30.8 L (32.0-36.0) % RDW 15.9 (11.6-17.2) % Plt Count 290 (150-450) th/mm3 MPV 9.2 (7.0-11.0) fL Neut % (Auto) 62.0 (16.0-70.0) % Lymph % (Auto) 27.9 (9.0-44.0) % [place] % (Auto) 7.7 (0.0-8.0) % Eos % (Auto) 1.5 (0.0-4.0) % Baso % (Auto) 0.9 (0.0-2.0) % Neut # (Auto) 5.9 (1.8-7.7) th/mm3 Lymph # (Auto) 2.6 (1.0-4.8) th/mm3 [place] # (Auto) 0.7 (0.0-0.9) th/mm3 Eos # (Auto) 0.1 (0.0-0.4) th/mm3 Baso # (Auto) 0.1 (0.0-0.2) th/mm3 WBC Differential . Diff Scan Auto diff confirmed Differential Comment . Ovalocytes 1+ H (None) Sodium 138 (136-145) meq/L Potassium 4.2 (3.5-5.1) meq/L Chloride 103 (98-107) meq/L Carbon Dioxide 21.8 (21.0-32.0) meq/L Anion Gap 13 (5-15) meq/L BUN 28 H (7-18) mg/dL Creatinine 1.70 H (0.50-1.00) mg/dL Estimated GFR 29 L (>89) mL/min Random Glucose 335 H (74-106) mg/dL Calcium 8.9 (8.5-10.1) mg/dL Total Bilirubin 0.3 (0.2-1.0) mg/dL AST 14 L (15-37) U/L ALT 20 (10-53) U/L Alkaline Phosphatase 139 H (45-117) U/L Troponin I Less than 0.02 L (0.02-0.05) ng/mL B-Natriuretic Peptide 77 (0-100) pg/mL Total Protein 8.1 (6.4-8.2) g/dL Albumin 3.6 (3.4-5.0) g/dL Imaging Data Radiologist's impression: Chest X-Ray 03/19/18 22:44 CONCLUSION: No acute cardiopulmonary process. Line over the right upper extremity and right chest not within a vascular structure. This can be correlated if this corresponds to a supporting line versus a PICC line. If this is a PICC line, it is not likely within a normal vascular structure. Discharge Plan Discharge Disposition Patient Disposition: 30 Still Patient Discharge Condition Condition: Stable Physicians Team ED Provider: Tomer Ceja Primary Care Provider: Moustapha Parker Attending Provider: Sunita Lee Discharge Interventions Interventions: Vital Signs Last Done: 03/19/18 21:54 Status ED Status: Admitted Observation Patient
[2018-03-20] MEDS ORDERED: Bisacodyl 10 MG Supp RECTAL PRN (02:28)
[2018-03-20] MEDS ORDERED: Dextrose 50% in Water 50 ML Vial IV.PUSH PRN (02:32)
[2018-03-20] MEDS: Sod Chloride 0.9% Inj 1,000 ML IV.CONT SCH ×2 (04:01→16:24)
[2018-03-20] MEDS: Acetaminophen 325 MG Tablet PO PRN ×2 (05:01→20:53)
[2018-03-20] MEDS ORDERED: Heparin 10,000 UNITS/10 ML Vial (for IV use) IV.PUSH STA (07:58)
[2018-03-20 07:59] LABS: Baso # (Auto) 0.1 th/mm3 (0.0-0.2); Baso % (Auto) 0.9 % (0.0-2.0); Eos # (Auto) 0.1 th/mm3 (0.0-0.4); Eos % (Auto) 1.5 % (0.0-4.0); Hematocrit 29.1 % (35.0-46.0); Hemoglobin 9.1 gm/dL (11.6-15.3); Lymph % (Auto) 37.8 % (9.0-44.0); Mean Corpuscular HGB Conc 31.3 % (32.0-36.0); Mean Corpuscular Hemoglobin 24.1 pg (27.0-34.0); Mean Corpuscular Volume 77.1 fL (80.0-100.0); Mono # (Auto) 0.7 th/mm3 (0.0-0.9); Mono % (Auto) 8.9 % (0.0-8.0); Neut % (Auto) 50.9 % (16.0-70.0); Platelet Count 266 th/mm3 (150-450); Red Blood Count 3.77 mil/mm3 (4.00-5.30); Red Cell Distribution Width 15.9 % (11.6-17.2); White Blood Count 7.9 th/mm3 (4.0-11.0)
--- NOTE | 2018-03-20 08:01 | P.HP ---
History of Present Illness Primary Care Physician: Moustapha Parker MD Chief Complaint: Chest pain History of Present Illness: 72-year-old female with known history of hypertension, hyperlipidemia, diabetes , gastroesophageal reflux who presented to the hospital for evaluation of chest pain. Patient indicates that she was in her normal state of health until 10 AM yesterday morning when she started developing chest pain located in the left side of her chest which she described a sharp pain that was roughly 5/10 on a pain scale with associated nausea and vomiting 2 times yesterday, shortness of breath, diaphoresis. Patient denies any radiation to neck, back, shoulder, arm. The patient states that the pain persisted throughout the day and and started getting worse at approximately 7 PM. The patient then came to emergency department for evaluation. Patient had EKG performed which did show supraventricular tachycardia in which the patient was given adenosine x1 with improvement of her heart rate, however EKG showed changes to indicate possible anterior ischemia. Patient indicates that she has been seen by Dr. Posada in the past. She thinks that she may have had a stress test done previously. On evaluating patient this morning she states that the pain was persistent until she went to sleep last night. When she woke up this morning she is no longer experiencing any discomfort. - Diagnosis (1) Supraventricular tachycardia (2) Chest pain (3) Acute coronary syndrome Review of Systems Constitutional: Reports excessive sweating Cardiovascular: Reports chest pain, Reports shortness of breath Gastrointestinal: Reports nausea, Reports vomiting Neurologic: Reports dizziness PMFSH - History History Provided By: Patient - Medical History Medical History: Medical History (Last Reviewed 03/20/18 @ 07:50 by SOPHIA Hayward) History of high blood pressure History of high cholesterol Hx of diabetes mellitus Hx of gastroesophageal reflux (GERD) - Surgical History Surgical History: Surgical History (Last Reviewed 03/20/18 @ 07:50 by SOPHIA Hayward) History of cataract surgery - Family History Family History: Family History (Last Reviewed 03/20/18 @ 07:50 by SOPHIA Hayward) Father History of diabetes mellitus History of lung cancer Brother History of leukemia Mother History of ovarian cancer - Tobacco History Second Hand Smoke Exposure: No Smoking Status: Never smoker - Alcohol History How Often Do You Have a Drink Containing Alcohol: Never - Substance Use History Substance History: No History of Abuse - Travel History Recent Travel in the [facility] Within the Last 8 Weeks: No Recent Travel Out of the Country Within the Last 8 Weeks: No - Immunization History Tetanus Immunization: Unsure Hx Influenza Vaccine This Season: Yes Medications and Allergies Active Medications: Active Medications Acetaminophen (Tylenol) 650 mg PO Q4H PRN PRN Reason: Temp > 100.4 Last Admin: 03/20/18 05:01 Dose: 650 mg Al Hydroxide/Mg Hydroxide (Milk Of Magnesia Liq) 30 ml PO Q12H PRN PRN Reason: Mild Constipation Atorvastatin Calcium (Lipitor) 20 mg PO DAILY [facility] Bisacodyl (Dulcolax Supp) 10 mg RECTAL DAILY PRN PRN Reason: SEVERE CONSITIPATION Dextrose (D50w Vial) 50 ml IV.PUSH UNSCH PRN PRN Reason: PER HYPOGLYCEMIA PROTOCOL Glucagon (Glucagon Inj) 1 mg OTHER PRN PRN PRN Reason: for Hypoglycemia Protocol Sodium Chloride (Ns Inj) 1,000 mls @ 100 mls/hr IV.CONT .Q10H GIA Last Infusion: 03/20/18 07:14 Dose: 100 mls/hr Insulin Aspart (Novolog Insulin Correctional Sugar Inj) 0 unit SQ ACHS GIA; Protocol Lactulose (Lactulose Liq) 30 ml PO DAILY PRN PRN Reason: SEVERE CONSITIPATION Metoprolol Tartrate (Lopressor) 25 mg PO BID [facility] Ondansetron HCl (Zofran Inj) 4 mg IV.PUSH Q6H PRN PRN Reason: NAUSEA OR VOMITING Pantoprazole Sodium (Protonix) 20 mg PO DAILY [facility] Senna/Docusate Sodium (Yessica-Colace) 1 tab PO BID [facility] Sennosides (Senokot) 17.2 mg PO Q12H PRN PRN Reason: Moderate Constipation Sodium Chloride (Ns Flush) 2 ml IV.FLUSH UNSCH PRN PRN Reason: FLUSH AFTER USING IV ACCESS Allergies Allergy/AdvReac Type Severity Reaction Status Date / Time No Known Allergies Allergy Verified 03/19/18 22:31 Home Medications Medication Instructions Recorded Confirmed Type Vitamin B-12 1,000 mcg PO DAILY 03/19/18 03/19/18 History acarbose 50 mg PO TID 03/19/18 03/19/18 History atorvastatin 20 mg PO DAILY 03/19/18 03/19/18 History glipizide 5 mg PO BID 03/19/18 03/19/18 History lisinopril-hydrochlorothiazide 1 tab PO BID 03/19/18 03/19/18 History metformin 1,000 mg PO BID 03/19/18 03/19/18 History metoprolol succinate 50 mg PO DAILY 03/19/18 03/19/18 History omeprazole 20 mg PO DAILY 03/19/18 03/19/18 History sitagliptin [Januvia] 100 mg PO DAILY 03/19/18 03/19/18 History Exam Vital signs: Vital Signs 03/19/18 21:54 03/19/18 22:42 03/19/18 22:46 Temperature 98.2 F 97.9 F Pulse Rate 165 H 158 H 96 H Respiratory Rate 18 18 Blood Pressure 98/58 L 140/60 Pulse Oximetry 97 98 03/19/18 23:29 03/20/18 01:21 03/20/18 02:35 Temperature Pulse Rate 97 H 78 Respiratory Rate 18 18 Blood Pressure 135/50 L 132/61 Pulse Oximetry 97 97 97 03/20/18 04:00 03/20/18 04:39 03/20/18 04:51 Temperature 96.6 F L Pulse Rate 75 77 71 Respiratory Rate 18 18 Blood Pressure 133/64 131/55 L Pulse Oximetry 97 97 Intake & Output 03/19/18 03/20/18 03/20/18 18:59 06:59 18:59 Intake Total 60 / 60 253 / 253 Balance 60 / 60 253 / 253 Weight 116.8 kg Intake: IV 253 / 253 NS Inj 1,000 ML @ 100 mls/hr IV 253 / 253 .CONT .Q10H [facility]IA Rx#:[id number] Oral Other: # Voids 1 Date of Last Bowel Movement 03/19/18 Weight On Admission 116.8 kg Narrative: GENERAL: Well-developed, well-nourished, in no acute distress. alert and orientated HEENT: Head is normocephalic without any lesions or masses noted. Facial features are symmetric. Eyes: Pupils equal round reactive to light. Extraocular muscles are intact. Conjunctivae were clear. Oropharyngeal: Pharynx without any erythema edema. Tongue is midline without deviation. Buccal mucosa is moist without any masses or lesions NECK: Supple without any masses. Trachea midline no deviation. No JVD, no bruits are appreciated CARDIAC: Regular rhythm, regular rate. S1/S2 are heard. No murmurs gallops or rubs. LUNGS: Clear to auscultation bilaterally. No wheeze, rhonchi or rales. No use of accessory muscles on inspiration or expiration. ABDOMEN: Soft, nontender. Nondistended. Bowel sounds heard in all 4 quadrants. No organomegaly or masses. Negative rebound, negative guarding EXTREMITIES: No edema, pulses are equal bilaterally. No cyanosis or clubbing NEUROLOGY: Mood and affect appear appropriate. Cranial nerves II through XII grossly intact. Muscle strength 5/5 in upper and lower extremities bilaterally. Deep tendon reflexes are 2+ in upper and lower extremities bilaterally. Results - Labs CBC & Chem 7: 03/19/18 22:50 03/19/18 22:50 Labs: Laboratory Results - last 24 hr 03/19/18 03/19/18 03/19/18 22:50 22:50 22:50 CBC w Diff Slide review pending WBC 9.4 RBC 3.94 L Hgb 9.4 L Hct 30.4 L MCV 77.1 L MCH 23.8 L MCHC 30.8 L RDW 15.9 Plt Count 290 MPV 9.2 Neut % (Auto) 62.0 Lymph % (Auto) 27.9 [place] % (Auto) 7.7 Eos % (Auto) 1.5 Baso % (Auto) 0.9 Neut # (Auto) 5.9 Lymph # (Auto) 2.6 [place] # (Auto) 0.7 Eos # (Auto) 0.1 Baso # (Auto) 0.1 WBC Differential . Diff Scan Auto diff confirmed Differential Comment . Ovalocytes 1+ H Sodium 138 Potassium 4.2 Chloride 103 Carbon Dioxide 21.8 Anion Gap 13 BUN 28 H Creatinine 1.70 H Estimated GFR 29 L POC Glucose Random Glucose 335 H Calcium 8.9 Total Bilirubin 0.3 AST 14 L ALT 20 Alkaline Phosphatase 139 H Troponin I Less than 0.02 L B-Natriuretic Peptide 77 Total Protein 8.1 Albumin 3.6 03/20/18 07:30 CBC w Diff WBC RBC Hgb Hct MCV MCH MCHC RDW Plt Count MPV Neut % (Auto) Lymph % (Auto) [place] % (Auto) Eos % (Auto) Baso % (Auto) Neut # (Auto) Lymph # (Auto) [place] # (Auto) Eos # (Auto) Baso # (Auto) WBC Differential Diff Scan Differential Comment Ovalocytes Sodium Potassium Chloride Carbon Dioxide Anion Gap BUN Creatinine Estimated GFR POC Glucose 154 H Random Glucose Calcium Total Bilirubin AST ALT Alkaline Phosphatase Troponin I B-Natriuretic Peptide Total Protein Albumin - Imaging Impressions Chest X-Ray 03/19/18 22:44 CONCLUSION: No acute cardiopulmonary process. Line over the right upper extremity and right chest not within a vascular structure. This can be correlated if this corresponds to a supporting line versus a PICC line. If this is a PICC line, it is not likely within a normal vascular structure. Caprini VTE Risk Assessment Caprini VTE Risk Assessment: Moderate/High Risk (score >= 2) Caprini Risk Assessment Model: Point Value = 1 Point Value = 2 Point Value = 3 Point Value = 5 Age 41-60 Minor surgery BMI > 25 kg/m2 Swollen legs Varicose veins or History of unexplained or recurrent spontaneous Oral contraceptives or hormone replacement Sepsis (< 1 month) Serious lung disease, including pneumonia (< 1 month) Abnormal pulmonary function Acute myocardial infarction Congestive heart failure (< 1 month) History of inflammatory bowel disease Medical patient at bed rest Age 61-74 Arthroscopic surgery Major open surgery (> 45 min) Laparoscopic surgery (> 45 min) Malignancy Confined to bed (> 72 hours) Immobilizing plaster cast Central venous access Age >= 75 History of VTE Family history of VTE Factor V Leiden Prothrombin [id number] Lupus anticoagulant Anticardiolipin antibodies Elevated serum homocysteine Heparin-induced thrombocytopenia Other congenital or acquired thrombophilia Stroke (< 1 month) Elective arthroplasty Hip, pelvis, or leg fracture Acute spinal cord injury (< 1 month) Prophylaxis Regimen: Total Risk Factor Score Risk Level Prophylaxis Regimen 0-1 Low Early ambulation 2 Moderate Order ONE of the following: *Sequential Compression Device (SCD) *Heparin 5000 units SQ BID 3-4 Higher Order ONE of the following medications: *Heparin 5000 units SQ TID *Enoxaparin/Lovenox 40 mg SQ daily (WT < 150 kg, CrCl > 30 mL/min) *Enoxaparin/Lovenox 30 mg SQ daily (WT < 150 kg, CrCl > 10-29 mL/min) *Enoxaparin/Lovenox 30 mg SQ BID (WT < 150 kg, CrCl > 30 mL/min) AND/OR *Sequential Compression Device (SCD) 5 or more Highest Order ONE of the following medications: *Heparin 5000 units SQ TID (Preferred with Epidurals) *Enoxaparin/Lovenox 40 mg SQ daily (WT < 150 kg, CrCl > 30 mL/min) *Enoxaparin/Lovenox 30 mg SQ daily (WT < 150 kg, CrCl > 10-29 mL/min) *Enoxaparin/Lovenox 30 mg SQ BID (WT < 150 kg, CrCl > 30 mL/min) AND *Sequential Compression Device (SCD) Assessment and Plan - Assessment (1) Supraventricular tachycardia Code(s): I47.1 - Supraventricular tachycardia Status: Acute (2) Chest pain Code(s): R07.9 - Chest pain, unspecified Status: Acute (3) Acute coronary syndrome Code(s): I24.9 - Acute ischemic heart disease, unspecified Status: Acute - Plan Chest pain, possible acute coronary syndrome -Patient presented with typical symptoms of chest pain, nausea, vomiting, diaphoresis, shortness of breath, dizziness -Patient with significant risk factors to include age, hypertension, hyperlipidemia, diabetes, body habitus -Continue to evaluate for cardiac injury with serial cardiac enzymes -Initial EKGs reviewed by myself did show supraventricular tachycardia with right bundle branch block, left anterior fascicular block. Follow-up EKG which reviewed by myself after adenosine indicating right bundle branch block, left anterior fascicular block, changes to indicate anterior myocardial ischemia. -We will assure cardioprotection with administration of aspirin, continuation of beta-cari, start Nitropaste, continue statin -Consult regional flatbed truck driver for further recommendations, patient indicates that she previously has been seen by Dr. Posada -We will start heparin IV with SC protocol Supraventricular tachycardia -Unknown etiology at this time. Could be secondary to acute coronary injury, infection -Status post adenosine x1 in the emergency department with improvement of heart rate Hypertension, hyper lipidemia -Patient continued on beta-cari, BENJIE inhibitor, statin -Obtain lipid panel Acute worsening of chronic kidney disease stage III -Continue monitor renal function -Try to avoid nephrotoxins Diabetes -Accu-Cheks with sliding scale insulin DVT prevention -Heparin IV
[2018-03-20 08:02] LABS: Chloride 107 meq/L (98-107); Potassium 4.1 meq/L (3.5-5.1); Sodium 142 meq/L (136-145)
[2018-03-20 08:21] LABS: Alanine Aminotransferase 17 U/L (10-53); Albumin 2.9 g/dL (3.4-5.0); Alkaline Phosphatase 113 U/L (45-117); Anion Gap 9 meq/L (5-15); Aspartate Aminotransferase 11 U/L (15-37); Blood Urea Nitrogen 30 mg/dL (7-18); Calcium 8.1 mg/dL (8.5-10.1); Carbon Dioxide 26.3 meq/L (21.0-32.0); Glomerular Filtration Rate 44 mL/min (>89); Glucose,Random 134 mg/dL (74-106); Total Protein 6.5 g/dL (6.4-8.2); Troponin I 0.03 ng/mL (0.02-0.05)
[2018-03-20 08:29] LABS: Prothrombin Time 9.8 sec (9.8-11.6)
[2018-03-20] MEDS ORDERED: Heparin Drip 25,000 UNIT/250 ML BAG IV.CONT PRN (08:30)
[2018-03-20] MEDS: Insulin NovoLOG Aspart Correctional Sugar Inj SQ SCH ×4 (09:22→21:04)
[2018-03-20] MEDS: Pantoprazole Sodium 20 MG DR Tablet PO SCH (09:23)
[2018-03-20] MEDS: Aspirin 325 MG Tablet PO SCH (09:23)
[2018-03-20] MEDS: Senna/Docusate Sodium 8.6/50 MG Tablet PO SCH ×2 (09:24→20:52)
[2018-03-20] MEDS: Lisinopril 20 MG Tablet PO SCH ×2 (09:24→20:52)
[2018-03-20] MEDS: Metoprolol Tartrate 25 MG Tablet PO SCH ×2 (09:24→20:52)
--- NOTE | 2018-03-20 09:52 | ECG ---
Date Performed: 03/19/2018 Time Performed: 22:32:54 PTAGE: 72 years EKG: Sinus rhythm WITH SINUS ARRHYTHMIA RIGHT BUNDLE BRANCH BLOCK LEFT ANTERIOR FASCICULAR BLOCK LEFT VENTRICULAR HYPE RTROPHY AND ST-T CHANGE POSSIBLE ANTERIOR MYOCARDIAL INFARCTION ABNORMAL ECG Compared to prior electr ocardiogram, rate has decreased . PREVIOUS TRACING : 03/19/2018 22.01 DOCTOR: David Almodovar Interpretating Date/Time 03/20/2018 09:51:03
--- NOTE | 2018-03-20 09:53 | ECG ---
Date Performed: 03/19/2018 Time Performed: 22:01:52 PTAGE: 72 years EKG: Unclear underlying supraventricular tachycardia RIGHT BUNDLE BRANCH BLOCK LEFT ANTERIOR FAS CICULAR BLOCK LEFT VENTRICULAR HYPERTROPHY AND ST-T CHANGE ABNORMAL ECG Compared to prior electrocard iogram, rate has increased . PREVIOUS TRACING : 07/05/2016 18.32 DOCTOR: David Almodovar Interpretating Date/Time 03/20/2018 09:52:22
[2018-03-20 10:09] LABS: Bilirubin,Urine Negative (Negative); Clarity,Urine Clear (Clear); Color,Urine Yellow (Yellw/Straw); Glucose,Urine (UA) Negative (Negative); Leukocyte Esterase,Urine Small (Negative); Nitrite,Urine Negative (Negative); PH,Urine 5.5 (5.0-8.5); Specific Gravity,Urine 1.025 (1.002-1.035); Urobilinogen,Urine 0.2 mg/dL (Less than 2)
[2018-03-20 10:18] LABS: Bacteria,Urine Few /hpf; Squamous Epithelial Cell,Urine 0-5 /hpf (0-5)
[2018-03-20 10:22] LABS: Ovalocytes 1+; Platelet Estimate Normal (Normal); Platelet Morphology Normal (Normal)
[2018-03-20] MEDS ORDERED: Heparin 10,000 UNITS/10 ML Vial (for IV use) IV.PUSH PRN (13:58)
--- NOTE | 2018-03-20 16:31 | MB ---
cc: Franco Posada MD DATE: 03/20/2018 REASON FOR CONSULTATION: SVT and chest pain. HISTORY OF PRESENT ILLNESS: The patient is a very pleasant 72-year-old woman who has seen me in the past, who has a history of hypertension, hyperlipidemia, obesity, who presented with a sudden onset of chest pressure. In the emergency department, she was found to be in supraventricular tachycardia, which resolved with adenosine x1. She was admitted for observation and has since ruled out for [place]. She has been asymptomatic since then. No residual chest pain, shortness of breath, lightheadedness, dizziness, syncope. PAST MEDICAL HISTORY: Hypertension, obesity, hyperlipidemia. CURRENT MEDICATIONS: 1. Aspirin 325 mg daily. 2. Lipitor 20 mg daily. 3. IV heparin 4. Lisinopril 20 mg daily. 5. Lopressor 25 mg b.i.d. 6. Nitro paste. ALLERGIES: NO KNOWN DRUG ALLERGIES. PHYSICAL EXAMINATION: VITAL SIGNS: Afebrile, pulse 62, respiratory rate 18, BP 121/56, saturating 97 on 2 liters. GENERAL: Pleasant, obese woman in no distress. NECK: No JVD. LUNGS: Clear to auscultation bilaterally. CARDIOVASCULAR: Regular rate and rhythm. No murmurs appreciated. ABDOMEN: Benign. EXTREMITIES: No edema. LABORATORY DATA: White count 7.9, hematocrit 29.1, platelets 266. Sodium 142, potassium 4.1, chloride 107, bicarbonate 26.3, BUN 30, creatinine 1.2, glucose 134. Cardiac enzymes are negative x 3. EKG initially showed supraventricular tachycardia with a right bundle branch block and left anterior fascicular block with subsequent EKG showing sinus tachycardia. Both EKGs showed fairly diffuse ST changes. IMPRESSION: Supraventricular tachycardia. The patient had an episode of symptomatic supraventricular tachycardia with chest pain, now resolved. She is on metoprolol. I do think a nuclear stress test is reasonable, so we will order that. She is on a heparin drip, but if her stress test is nonischemic, this can be discontinued. If her stress test is nonischemic, she can be discharged to follow with me in the office. Thank you again for the opportunity to participate in the patient's care. MD HANNAH Gooden/pastora , 02:02 PM , 02:08 PM
--- NOTE | 2018-03-20 17:02 | ECHRPT ---
Indication: CARDIOMYOPATHY CONCLUSIONS The left ventricular systolic function is normal with an estimated ejection fraction in the range of 60-65%. Normal left ventricular size. Wall thickness is normal. No regional wall motion abnormalities are present. Trace mitral valve regurgitation. BP: / HR: Rhythm: MEASUREMENTS (Male / Female) Normal Values Technical Quality: 2D ECHO LVOT Diameter 1.8 cm LV Ejection Fraction MOD 4C 62.5 % LV Ejection Fraction 4C AL 65.5 % M-MODE Aortic Root Diameter MM 2.1 cm LA Systolic Diameter MM 4.0 cm LA Ao Ratio MM 1.9 AV Cusp Separation MM 2.0 cm DOPPLER AV Peak Velocity 156.0 cm/s AV Peak Gradient 9.7 mmHg LVOT Peak Velocity 122.0 cm/s LVOT Peak Gradient 6.0 mmHg AV Area Cont Eq pk 2.0 cm MV Area PHT 3.2 cm Mitral E Point Velocity 81.9 cm/s Mitral A Point Velocity 80.9 cm/s Mitral E to A Ratio 1.0 PV Peak Velocity 78.7 cm/s PV Peak Gradient 2.5 mmHg FINDINGS LEFT VENTRICLE The left ventricular systolic function is normal with an estimated ejection fraction in the range of 60-65%. Normal left ventricular size. Wall thickness is normal. No regional wall motion abnormalities are present. RIGHT VENTRICLE Normal right ventricular size and systolic function. LEFT ATRIUM The left atrial size is normal. RIGHT ATRIUM The right atrial size is normal. ATRIAL SEPTUM Normal atrial septal thickness without atrial level shunting by limited color doppler interrogation. AORTA The aortic root and proximal ascending aorta are normal in size on limited imaging. MITRAL VALVE Structurally normal mitral valve. Trace mitral valve regurgitation. AORTIC VALVE Trileaflet aortic valve. No aortic valve stenosis or regurgitation. TRICUSPID VALVE Structurally normal tricuspid valve. No tricuspid valve stenosis or regurgitation. PULMONARY VALVE The pulmonary valve is not well visualized. VESSELS The inferior vena cava is normal in size. PERICARDIUM No pericardial effusion. Franco Posada MD (Electronically Signed) Final Date:20 March 2018 17:01
[2018-03-20] MEDS: Heparin 10,000 UNITS/10 ML Vial (for IV use) IV.PUSH PRN (20:53)
[2018-03-21] MEDS: Heparin 10,000 UNITS/10 ML Vial (for IV use) IV.PUSH PRN (04:31)
[2018-03-21 06:53] LABS: Hematocrit 28.5 % (35.0-46.0); Mean Corpuscular HGB Conc 31.5 % (32.0-36.0); Mean Corpuscular Hemoglobin 24.1 pg (27.0-34.0); Mean Corpuscular Volume 76.5 fL (80.0-100.0); Platelet Count 270 th/mm3 (150-450); Red Blood Count 3.73 mil/mm3 (4.00-5.30); Red Cell Distribution Width 16.3 % (11.6-17.2)
[2018-03-21] MEDS: Insulin NovoLOG Aspart Correctional Sugar Inj SQ SCH ×2 (08:11→12:29)
[2018-03-21] MEDS: Metoprolol Tartrate 25 MG Tablet PO SCH (08:13)
[2018-03-21] MEDS: Lisinopril 20 MG Tablet PO SCH (08:13)
[2018-03-21] MEDS: Pantoprazole Sodium 20 MG DR Tablet PO SCH (08:13)
[2018-03-21] MEDS: Senna/Docusate Sodium 8.6/50 MG Tablet PO SCH (08:14)
[2018-03-21] MEDS: Aspirin 325 MG Tablet PO SCH (08:14)
[2018-03-21 09:02] VITALS: TEMP 97.6
[2018-03-21] MEDS ORDERED: Regadenoson Inj 0.4 MG/5 ML Syringe IV.PUSH ONE (10:18)
[2018-03-21 10:20] LABS: Chol/HDL Ratio 3.42 Ratio; HDL Cholesterol 35.6 mg/dL (40.0-60.0)
--- NOTE | 2018-03-21 10:25 | P.PN ---
Subjective Interval history: 72-year-old female who is seen and examined today for follow-up on supraventricular tachycardia possible myocardial ischemia. Patient resting in bed comfortably. Denies any new complaints. Awaiting myocardial perfusion study. Vital signs are stable. Patient remains afebrile. Physical Exam Vital signs: Vital Signs 03/20/18 12:00 03/20/18 16:00 03/20/18 19:31 Temperature 96.6 F L 97.5 F L Pulse Rate 62 62 Respiratory Rate 18 18 Blood Pressure 121/56 L 114/52 L Pulse Oximetry 97 95 95 03/20/18 20:00 03/21/18 00:00 03/21/18 04:00 Temperature 97 F L 97.8 F 97.7 F Pulse Rate 73 61 65 Respiratory Rate 20 20 20 Blood Pressure 129/58 L 125/68 161/71 H Pulse Oximetry 97 97 98 03/21/18 07:27 03/21/18 08:00 Temperature 97.6 F Pulse Rate 59 L Respiratory Rate 20 Blood Pressure 129/60 Pulse Oximetry 93 L 97 Intake & Output 03/20/18 03/21/18 03/21/18 18:59 06:59 18:59 Intake Total 800 / 800 60 / 60 0 / 0 Output Total 200 / 200 Balance 800 / 800 60 / 60 -200 / -200 Weight 116.8 kg Intake: IV 800 / 800 NS Inj 1,000 ML @ 100 mls/hr IV 800 / 800 .CONT .Q10H [facility]IA Rx#:[id number] Oral 60 / 60 0 / 0 Output: Urine 200 / 200 Other: # Voids 4 Date of Last Bowel Movement 03/20/18 Narrative: GENERAL: Well-developed, well-nourished, in no acute distress. alert and orientated HEENT: Head is normocephalic without any lesions or masses noted. Facial features are symmetric. Eyes: Extraocular muscles are intact. Conjunctivae were clear. NECK: Supple without any masses. Trachea midline no deviation. No JVD, CARDIAC: Regular rhythm, regular rate. S1/S2 are heard. No murmurs gallops or rubs. LUNGS: Clear to auscultation bilaterally. No wheeze, rhonchi or rales. No use of accessory muscles on inspiration or expiration. ABDOMEN: Soft, nontender. Nondistended. Bowel sounds heard in all 4 quadrants. No organomegaly or masses. Negative rebound, negative guarding EXTREMITIES: No edema, pulses are equal bilaterally. No cyanosis or clubbing NEUROLOGY: Mood and affect appear appropriate. Cranial nerves II through XII grossly intact. Moving all extremities, speech is clear Results - Labs CBC & Chem 7: 03/21/18 05:05 03/20/18 06:25 Laboratory Results - last 24 hr 03/20/18 03/20/18 03/20/18 06:25 11:17 12:35 WBC RBC Hgb Hct MCV MCH MCHC RDW Plt Count MPV WBC Differential . Diff Scan Auto diff confirmed Platelet Estimate Normal Platelet Morphology Normal Ovalocytes 1+ H APTT POC Glucose 204 H Troponin I Less than 0.02 L Triglycerides Cholesterol LDL Cholesterol, Calc HDL Cholesterol Cholesterol/HDL Ratio 03/20/18 03/20/18 03/20/18 16:35 18:50 20:58 WBC RBC Hgb Hct MCV MCH MCHC RDW Plt Count MPV WBC Differential Diff Scan Platelet Estimate Platelet Morphology Ovalocytes APTT 29.1 POC Glucose 127 H 323 H Troponin I Triglycerides Cholesterol LDL Cholesterol, Calc HDL Cholesterol Cholesterol/HDL Ratio 03/21/18 03/21/18 03/21/18 03:00 05:05 05:05 WBC 8.0 RBC 3.73 L Hgb 9.0 L Hct 28.5 L MCV 76.5 L MCH 24.1 L MCHC 31.5 L RDW 16.3 Plt Count 270 MPV 10.0 WBC Differential Diff Scan Platelet Estimate Platelet Morphology Ovalocytes APTT 33.8 H POC Glucose Troponin I Triglycerides 91 Cholesterol 122 LDL Cholesterol, Calc 68 HDL Cholesterol 35.6 L Cholesterol/HDL Ratio 3.42 03/21/18 07:19 WBC RBC Hgb Hct MCV MCH MCHC RDW Plt Count MPV WBC Differential Diff Scan Platelet Estimate Platelet Morphology Ovalocytes APTT POC Glucose 178 H Troponin I Triglycerides Cholesterol LDL Cholesterol, Calc HDL Cholesterol Cholesterol/HDL Ratio Microbiology 03/20/18 11:10 Stool Stool Occult Blood (CATHERINE) - Final Hemoccult negative Assessment and Plan - Assessment (1) Supraventricular tachycardia Code(s): I47.1 - Status: Acute (2) Chest pain Code(s): R07.9 - Status: Acute (3) Acute coronary syndrome Code(s): I24.9 - Status: Acute - Plan Chest pain, possible acute coronary syndrome -Patient presented with typical symptoms of chest pain, nausea, vomiting, diaphoresis, shortness of breath, dizziness -Patient with significant risk factors to include age, hypertension, hyperlipidemia, diabetes, body habitus -Serial cardiac enzymes have remained negative -Initial EKGs reviewed by myself did show supraventricular tachycardia with right bundle branch block, left anterior fascicular block. Follow-up EKG which reviewed by myself after adenosine indicating right bundle branch block, left anterior fascicular block, changes to indicate anterior myocardial ischemia. -We we will continue cardioprotection with administration of aspirin, continuation of beta-cari, Nitropaste, delete statin -Consult splitting machine operator helper for further recommendations, who recommended myocardial perfusion study was normal, no signs of ischemia, low risk -Continue heparin IV with AL protocol Supraventricular tachycardia -Unknown etiology at this time. Could be secondary to acute coronary injury, infection -Status post adenosine x1 in the emergency department with improvement of heart rate Hypertension, hyper lipidemia -Patient continued on beta-cari, BENJIE inhibitor, statin -LDL 68 Acute worsening of chronic kidney disease stage III -Continue monitor renal function -Try to avoid nephrotoxins Diabetes -Accu-Cheks with sliding scale insulin DVT prevention -Heparin IV Discharge Planning: Discharge home in stable condition Activity: Ad ever. Diet: Healthy heart diet Medication per medication reconciliation Follow-up with primary medical doctor in 1 week
--- NOTE | 2018-03-21 11:32 | NM ---
EXAM DATE: 03/21/2018 10:13 AM EDT AGE/SEX: 72 years / Female INDICATIONS:Abnormal EKG. Angina Substernal chest pain. CLINICAL DATA: This is the patient's initial encounter. Patient reports that signs and symptoms have been present for 1 day and indicates a pain score of 5/10. MEDICAL/SURGICAL HISTORY: Hypertension. Diabetes mellitus type II. Gastroesophageal reflux di sease. None. COMPARISON: No prior exams available for comparison. DOSE: 10 mCi Tc 99m Myoview at rest 30 mCi [id number] at stress 0.4 mg Lexiscan STRESS SYMPTOMS: Dyspnea. EJECTION FRACTION: 67 % TECHNIQUE: The patient underwent pharmacologic stress with infusion of prescribed dose. Continuous ECG tracing was monitored during stress. Gated SPECT imaging was performed after stress and conventi onal SPECT imaging was performed at rest. The examination was performed on a SPECT/CT scanner, both attenuation and non-corrected datasets were reviewed. FINDINGS: Distribution: The maximum perfused segment at stress is in the anterior wall. Perfusion Study: The pattern of perfusion at stress is within normal limits. Gated Study: There are intact wall motion and wall thickening without hypokinetic or dyskinetic segm ents. The ejection fraction is calculated at 67%. RISK CATEGORY: Low risk (less than 1% annual mortality rate) CONCLUSION: 1. Negative examination. Electronically signed by: Jarret Balderrama MD 03/21/2018 11:30 AM EDT
[2018-03-21 13:17] VITALS: BP 132/61; PULSE 62; RESP 19; O2SAT 96
== END 2018-03-21 16:18 | disposition home or self-care (01) ==
LOC: PHED 21:48 → PHEDA 03-20 02:47 → INTOOBSV 03-20 02:47 → PH3 03-20 04:27
PROVIDERS: ADMIT Hospitalist; ATTEND Hospitalist